=== PATIENT | female | born 2000 | race Caucasian/White ===

== ENCOUNTER 2022-01-08 23:43 | Emergency (ER) | payer SELFPAY ==
[2022-01-08] MEDS ORDERED: Naloxone 0.4 MG/ML SDV ONE (23:47)
[2022-01-08] MEDS ORDERED: Ondansetron 4 MG/2 ML SDV IVPUSH ONE (23:54)
[2022-01-08] MEDS ORDERED: Sodium Chloride 0.9% 1,000 ML IV ONE (23:54)
[2022-01-08] MEDS ORDERED: Ondansetron 4 MG/2 ML SDV ONE (23:54)
[2022-01-09] MEDS ORDERED: Naloxone 0.4 MG/ML SDV IVPUSH STA (00:12)
[2022-01-09] MEDS ORDERED: Ondansetron 4 MG/2 ML SDV IVPUSH ONE (02:58)
== END 2022-01-09 03:48 | disposition home or self-care (01) ==
LOC: MW.ED 23:43
DX: T40.2X1A Poisoning by other opioids, accidental (unintentional), initial encounter (principal)
CPT/HCPCS: 96374; 96375; 96376; 99283; J2310; J2405; J7030; 99291

== ENCOUNTER 2025-04-10 09:40 | Emergency (ER) | payer OTHER, BC ==
[2025-04-10] MEDS: Cyclobenzaprine 10 MG Tab PO ONE (09:58)
[2025-04-10] MEDS: Ketorolac 30 MG/ML SDV IM ONE (09:58)
== END 2025-04-10 12:04 | disposition home or self-care (01) ==
LOC: MW.ED 09:40
DX: S16.1XXA Strain of muscle, fascia and tendon at neck level, initial encounter (principal); Z75.3 Unavailability and inaccessibility of health-care facilities; Z79.899 Other long term (current) drug therapy; V49.49XA Driver injured in collision with other motor vehicles in traffic accident, initial encounter; Y93.89 Activity, other specified
CPT/HCPCS: 70450; 71046; 72125; 96372; 99284; A9270; J1885; 99283